=== PATIENT | female | born 1955 | race Caucasian/White ===

== ENCOUNTER 2016-11-11 11:23 | Emergency (ER) | payer OTHER ==
[~2016-11-11] VITALS: Ht 160 cm; Wt 82.2 kg
[~2016-11-11 11:23] MED LIST: FISH1CAP29 PO; MULT-806 PO; PYRI60TA PO; UBID1CAP47 PO; VITA1CAP52 PO; [UNRECOGNIZED DRUG - CODE] SL
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
--- OUTSIDE RECORDS SUMMARY | 2016-11-11 11:27 | XMS REPORT | Continuity of Care Document ---
Author Author [facility] Amb[facility] Address [address] [place] [address] Phone Care Team Providers Care Detail Sergeant Name Role Phone Martin Nina PP Unavailable Jil Bryan RP Unavailable Payers Payer name Insurance type Covered constitution party ID Authorization(s) Unknown Problems Condition Effective Dates (start - stop) Clinical Status Abnormal PET scan of colon - *Acute Personal history of malignant melanoma of skin - *Chronic Neck pain - *Chronic Fatigue, unspecified - *Chronic Mononucleosis - *Acute GERD (gastroesophageal reflux disease) - *Chronic Fatigue / Malaise - *Chronic Pleurisy - *Acute Myalgia and myositis, unspecified - *Chronic Personal history of malignant melanoma of skin - *Chronic Fatigue / Malaise - *Chronic Breast mass in female - *Acute Cellulitis of female breast - *Acute Skin lesion of right lower limb - Uncertain Fatigue / Malaise - *Chronic Fatigue / Malaise - *Chronic Cervicalgia - *Chronic DYSPHAGIA NOS - Tinnitus - *Chronic Thyroiditis - *Chronic Hiatal hernia - *Chronic MALIG MELANOMA LEG - PURE HYPERCHOLESTEROLEM - 311 - DEPRESSIVE DISORDER NEC - OSTEOARTHROS NOS-HAND - Fatigue - Episodic Joint pain - *Chronic Urinary frequency - *Acute Upper Respiratory Infection, Acute - *Acute Sleep apnea - *Chronic Insomnia - *Chronic Pharyngitis, Acute - *Acute Actinic keratosis - *Chronic Family History Family Member Diagnosis Age At Onset Status Maternal grandmother (Unknown) Heart disease Yes Maternal grandfather (Unknown) CVA (Stroke) Yes Maternal grandfather (Unknown) Heart disease Yes Sister (Unknown) Cancer - lung Yes Brother (Unknown) Obesity Yes Mother (Unknown) Obesity Yes Brother (Unknown) Diabetes Yes Mother (Unknown) Diabetes Yes Sister (Unknown) COPD Yes Sister (Unknown) Obesity Yes Family h/o (Unknown) Hyperlipidemia Yes Maternal grandmother (Unknown) Obesity Yes Maternal grandmother (Unknown) Diabetes Yes Family h/o (Unknown) COPD Yes Social History Social History Element Description Quantity Unknown Allergies, Adverse Reactions, Alerts Substance Reaction Severity Status Unknown Medications Medication Instructions Dosage Effective Dates (start - stop) Status 13 - Active multivitamin tablet take 3 Tablet by Oral route every day 0 - Active CoQ-10 30 mg capsule Take as directed - Active Fish Oil 1,000 mg capsule take 3 tablets by oral route every day 0 2012 - Active pyridostigmine bromide 60 mg tablet take 1 tablet (60MG) by oral route 5 times every day 60 MG - Active Immunizations Vaccine Date Status Comments Tdap (Adacel ) completed - Completed reason: other registry Results Test Name Date and Time Measure Units Reference Range Abnormal Flag Comments Unknown Vital Signs Date / Time: Height Weight Pulse Rate Blood Pressure Temperature /15:00:00 62.00 in 150.00 lbs 120/64 mm[Hg] 96.6 F Procedures Procedure Date Unknown Encounters Encounter Location Date Patient Visit [facility] New Surg Patient Visit [facility] FM Patient Visit [facility] FM Patient Visit [facility] Patient Visit [facility] Patient Visit [facility] Patient Visit [facility] Patient Visit [facility] ENT Patient Visit [facility] Patient Visit [facility] Patient Visit [facility] Mur Rheum Patient Visit [facility] New Patient Visit [facility] Loi Patient Visit [facility] Advance Directives Directive Effective Date Unknown
--- OUTSIDE RECORDS SUMMARY | 2016-11-11 11:27 | XMS REPORT | Continuity of Care Document ---
Author Author [facility] Organization [facility] Address Unknown Phone Unavailable Allergies Active Description Code Type Severity Reaction Onset Reported/Identified Relationship to Patient Clinical Status Yes No Known Allergies Drug Allergy 04/23/2012 Yes No Known Allergies Drug Allergy N/A N/A 04/23/2012 Yes No Known Drug Allergies Drug Allergy 04/23/2012 Yes No Known Drug Allergies Drug Allergy N/A N/A 04/23/2012 Yes No Known Food Allergies Food Allergy 04/23/2012 Yes No Known Food Allergies Food Allergy N/A N/A 04/23/2012 Medications Problems Date Dx Coded Attending Type Code Diagnosis Diagnosed By 04/23/2012 Warren Davila MD Final 075 INFECTIOUS MONONUCLEOSIS 04/23/2012 Warren Davila MD Final 276.51 DEHYDRATION 04/23/2012 Warren Davila MD Final 518.81 AC RESPIRATORY FAILURE 04/23/2012 Warren Davila MD Final 574.20 GB CALCULUS W/O CHOL 04/23/2012 Warren Davila MD Final 715.90 OSTEOARTHOSIS NOS-NOS 04/23/2012 Warren Davila MD Admitting 780.79 MALAISE FATIGUE NEC 04/23/2012 Warren Davila MD Final 787.91 DIARRHEA 08/06/2012 Final 611.72 LUMP OR MASS IN BREAST 08/06/2012 Final 611.79 SYMPTOMS IN BREAST NEC 02/18/2013 Axel Archer MD Final 515 POSTINFLAM PULM FIBROSIS 02/18/2013 Axel Archer MD Admitting 793.11 SOLITARY PULMON NODULE 02/18/2013 Axel Archer MD Final V81.5 NEPHROPATHY SCREENING 02/18/2013 Axel Archer MD Admitting 786.6 CHEST SWELLING/MASS/LUMP Procedures Results Encounters ACCT No. Visit Date/Time Discharge Status Pt. Type Provider Facility Loc./Unit Complaint [id number] 02/18/2013 11:32:00 2012 23:59:59 CLS Outpatient Gianni LINN, Axel Dockery [facility] [id number] 08/06/2012 01:44:00 2011 23:59:59 CLS Outpatient [id number] 04/23/2012 11:56:00 2011 18:07:00 DIS Inpatient Lola LINN, Warren Dowell [facility] [address] F8SW
--- OUTSIDE RECORDS SUMMARY | 2016-11-11 11:27 | XMS REPORT | Referral Summary ---
Author Author [facility] Organization [facility] Address Unknown Phone Unavailable Care Team Providers Care Operations Research Director Name Role Phone Randy Rhodes Primary Care Physician [phone] Encounter VC Date(s): 09/04/15 - 09/04/15 [facility] [address] [place] [id number] Discharge Diagnosis: Acute maxillary sinusitis Discharge Diagnosis: Acute bacterial bronchitis Discharge Disposition: 01-Home or Self Care Attending Physician: Randy Rhodes DO Admitting Physician: Randy Rhodes DO Vital Signs Most recent to 1 oldest [Reference Range]: Temperature Tympanic 36.2 degC [36.6-38.1 degC] *LOW* (09/04/15 1:58 PM) Peripheral Pulse 70 bpm Rate [60-100 bpm] (09/04/15 1:58 PM) Blood Pressure 142/75 mmHg [90-140/60-90 mmHg] *HI* (09/04/15 1:58 PM) Problem List Condition Effective Dates Status Health Status Informant Acute bacterial Active bronchitis(Confirmed ) Acute maxillary Active sinusitis(Confirmed) Anemia(Confirmed) Active Arthritis(Confirmed) Active Chicken Active pox(Confirmed) Depression(Confirmed Active ) Diverticula(Confirme Active d) Hearing Active loss(Confirmed) Hyperlipidemia(Confi Active rmed) Incontinence Active stress(Confirmed) Melanoma of 2006 Active thigh-left(Confirmed ) Migraine(Confirmed) Active Overweight(Confirmed Active ) Sleep Active apnea(Confirmed) Left thyroid Active nodule(Confirmed) Allergies, Adverse Reactions, Alerts No Known Medication Allergies Medications Augmentin 875 mg-125 mg oral tablet 1 tabs, Oral, q12hr, X 10 days, # 20 tabs, 0 Refill(s), Pharmacy: [facility] #[id number] Start Date: 09/04/15 Stop Date: 09/14/15 Status: Ordered Claritin 10 mg, 0 Refill(s) Start Date: 08/01/14 Status: Ordered Co Q-10 300 mg, Oral, Daily, takes 4 daily, 0 Refill(s) Start Date: 04/03/14 Status: Ordered CPAP Machine (DME) DME Item w/o O2, See Instructions, # 1 Each, 0 Refill(s), Supply Start Date: 04/03/14 Status: Ordered Fish Oil 1000 mg oral capsule 1 caps, Oral, TID, # 90 caps, 0 Refill(s) Start Date: 04/03/14 Status: Ordered multivitamin 1 tabs, Oral, Daily, 0 Refill(s) Start Date: 04/03/14 Status: Ordered predniSONE 20 mg oral tablet 20 mg 1 tabs, Oral, Daily, X 5 days, # 5 tabs, 0 Refill(s), Pharmacy: [facility] #[id number], 1 tabs Oral Daily,x5 days Start Date: 09/04/15 Stop Date: 09/09/15 Status: Ordered pyridostigmine 60 mg oral tablet 1 tabs, Oral, 5x/Day, 0 Refill(s) Start Date: 04/03/14 Status: Ordered Tessalon 200 mg oral capsule 200 mg 1 caps, Oral, TID, X 10 days, # 30 caps, 0 Refill(s), Pharmacy: [facility] #[id number], 1 caps Oral TID,x10 days Start Date: 09/04/15 Stop Date: 09/14/15 Status: Ordered Results No data available for this section Immunizations No data available for this section Procedures Procedure Date Related Diagnosis Body Site Hysterectomy 2000 Colonoscopy CPAP (continuous positive airway pressure) dependence Tubulovillous adenoma Social History Social History Type Response Smoking Status Never smoker Assessment and Plan Extracted from: Title: Office Visit Note Author: Randy Rhodes DO Date: 09/04/15 Assessment/Plan Acute bacterial bronchitis Pathophysiology of this presentation, and differential diagnosis, discussed in detail with the patient. All questions were answered. 1. Augmentin one tablet twice a day 10 days. 2. Prednisone 20 mg daily for 5 days. 3. Tessalon pearls 200 mg every 8 hours as needed for coughing. Ordered: amoxicillin-clavulanate, 1 tabs, Oral, q12hr, X 10 days, # 20 tabs, 0 Refill(s) , Pharmacy: [facility] #[id number] benzonatate, 200 mg 1 caps, Oral, TID, X 10 days, # 30 caps, 0 Refill(s), Pharmacy: [facility] #[id number], 1 caps Oral TID,x10 days predniSONE, 20 mg 1 tabs, Oral, Daily, X 5 days, # 5 tabs, 0 Refill(s), Pharmacy: [facility] #[id number], 1 tabs Oral Daily,x5 days Office Visit Level 4 Est 42690 Acute maxillary sinusitis 1. As above. Ordered: amoxicillin-clavulanate, 1 tabs, Oral, q12hr, X 10 days, # 20 tabs, 0 Refill(s) , Pharmacy: [facility] #[id number] benzonatate, 200 mg 1 caps, Oral, TID, X 10 days, # 30 caps, 0 Refill(s), Pharmacy: [facility] #[id number], 1 caps Oral TID,x10 days predniSONE, 20 mg 1 tabs, Oral, Daily, X 5 days, # 5 tabs, 0 Refill(s), Pharmacy: [facility] #[id number], 1 tabs Oral Daily,x5 days Office Visit Level 4 Est 08020
--- OUTSIDE RECORDS SUMMARY | 2016-11-11 11:27 | XMS REPORT | Referral Summary ---
Author Author [facility] Organization [facility] Address Unknown Phone Unavailable Care Team Providers Care Accounting Lecturer Name Role Phone Randy Rhodes Primary Care Physician [phone] Encounter VC Date(s): 03/03/16 - 03/03/16 [facility] [address] [place] [address] Discharge Diagnosis: Actinic keratoses Discharge Diagnosis: General medical exam Discharge Disposition: 01-Home or Self Care Attending Physician: Randy Rhodes DO Admitting Physician: Randy Rhodes DO Vital Signs Most recent to 1 oldest [Reference Range]: Temperature Tympanic 36.1 degC [36.6-38.1 degC] *LOW* (03/03/16 9:35 AM) Peripheral Pulse 70 bpm Rate [60-100 bpm] (03/03/16 9:35 AM) Blood Pressure 121/80 mmHg [90-140/60-90 mmHg] (03/03/16 9:35 AM) Problem List Condition Effective Dates Status Health [...] Reactions, Alerts No Known Medication Allergies Medications Co Q-10 300 mg, Oral, Daily, takes [...] 0 Refill(s) Start Date: 04/03/14 Status: Ordered pyridostigmine 60 mg oral tablet 1 tabs, Oral, 5x/Day, 0 Refill(s) Start Date: 04/03/14 Status: Ordered Results No data available for this section Immunizations No data available for this section Procedures Procedure Date Related Diagnosis Body Site Destruction (eg, laser surgery, 03/03/16 electrosurgery, cryosurgery, chemosurgery, surgical curettement), premalignant lesions (eg, actinic keratoses); first lesion Destruction (eg, laser surgery, 03/03/16 electrosurgery, cryosurgery, chemosurgery, surgical curettement), premalignant lesions (eg, actinic keratoses); second through 14 lesions, each (List separately in addition to code for first lesion) Colonoscopy1 09/18/13 Hysterectomy 2000 CPAP (continuous positive airway pressure) dependence Tubulovillous adenoma 1Results: Tubulovillous Adenoma; Diverticula . Repeat in 5 years Social History Social History Type Response Smoking Status Never smoker Assessment and Plan Extracted from: Title: Office Visit Note Author: Randy Rhodes DO Date: 03/03/16 Assessment/Plan 1.General medical exam 1. This is a well-developed well-nourished 60-year- old female in relatively good health. 2. Healthy lifestyle changes recommended, she voiced understanding. 3. Given her fair complexion and history of melanoma, sunscreen protection on a regular basis recommended. 4. Screening labs ordered today, report is pending. 5. Recommended yearly mammogram. 6. Her last colonoscopy was in November 2013, she is due to have a repeat colonoscopy 5 years from previous which would put her at November 2018. 7. Recommended yearly well woman exam. Ordered: CBC w/ Differential Comprehensive Metabolic Panel Destruction premalignant lesion 2-14, Each 09449 Hemoglobin A1c Lipid Panel Office Visit Level 4 Est 42081 TSH with Reflex Free T4 2.Actinic keratoses 1. A total of 5 actinic keratosis lesions were treated today involving the left medial, superior periorbital region, the nose, and the left advent region. 2. She has multiple actinic keratosis to her forearms. I recommended consideration of Aldara treatment. She will check with her insurance whether this is covered. Ordered: Destruction premalignant lesion 1st Destruction premalignant lesion 2-14, Each 56282 Office Visit Level 4 Est 31978
--- OUTSIDE RECORDS SUMMARY | 2016-11-11 11:27 | XMS REPORT | Continuity of Care Document ---
Author Author [facility] Organization [facility] Address Unknown Phone Unavailable Care Team Providers Care External Grinder Name Role Phone Primary Care Physician Unavailable Source Comments Some departments are not documenting in the electronic medical record. If you do not see the information that you expected, contact Release of Information in the Health Information Management department at [phone] for further assistance in locating additional records.[facility] Active Allergies and Adverse Reactions No Known Allergies Current Medications Prescription Sig. Disp. Refills Start End Date Status Date pyridostigmine (MESTINON) Take 60 mg by mouth three Active 60 mg tablet times daily. CoQ10 (Ubiquinol) 200 mg Take by mouth twice Active cap daily. vitamins, B complex Take 1 Tab by mouth Active (VITAMIN B COMPLEX) tab daily. CYANOCOBALAMIN (VITAMIN Take by mouth four times Active B-12) (VITAMIN B-12 PO) daily. LYSINE PO Take 3,000 mg by mouth. Active Iodine (Kelp) tab Take by mouth. Active manganese Active MAGNESIUM HYDROXIDE Take 200 mg by mouth. Active (MAGNESIA PO) VALERIAN PO Take by mouth at bedtime Active daily. Take 2 DOCOSAHEXANOIC ACID/EPA Take 2,000 mg by mouth. Active (FISH OIL PO) Active Problems Not on file Social History Tobacco Use Types Packs/Day Years Used Date Never Smoker Smokeless Tobacco: Never Used Alcohol Use Drinks/Week oz/Week Comments No Last Filed Vital Signs Vital Sign Reading Time Taken Blood Pressure 122/85 07/23/2013 10:38 AM LEGAL ADVISER Pulse 71 07/23/2013 10:38 AM LEGAL ADVISER Temperature - - Respiratory Rate - - Height 1.575 m (5' 2") 07/23/2013 10:38 AM LEGAL ADVISER Weight 67.586 kg (149 lb) 07/23/2013 10:38 AM LEGAL ADVISER Body Mass Index 27.25 07/23/2013 10:38 AM LEGAL ADVISER Oxygen Saturation - - Plan of Care Health Maintenance Due Date Last Done Comments Physical (Comprehensive) 1962 Exam Pertussis Vaccine 1966 Tetanus Vaccine 1972 Cervical Cancer Screening 1976 Breast Cancer Screening 1995 Colorectal Cancer 2005 Screening Shingles Vaccine 2015 Influenza Vaccine 04/28/2016 Results from Last 3 Months Not on file
--- OUTSIDE RECORDS SUMMARY | 2016-11-11 11:27 | XMS REPORT | Continuity of Care Document ---
Author Author [facility] Address [address] [place] [address] [place] [address] Phone Care Team Providers Care Documentation Spec Name Role Phone Martin Nina PP Unavailable Jil Bryan RP Unavailable Payers Payer name Insurance type Covered constitution party ID Authorization(s) Unknown Problems Condition Effective Dates (start - stop) Clinical Status Pleurisy - *Acute Myalgia and myositis, unspecified - *Chronic Neck pain - *Chronic Fatigue, [...] Dosage Effective Dates (start - stop) Status prednisone 10 mg tablet take 3 by Oral route TAKE DIRECTED 0 - Active pyridostigmine bromide 60 mg tablet take 1 tablet (60MG) by oral route 6 times every day 60 MG - Active multivitamin tablet take 3 Tablet by Oral route every day 0 - Active CoQ-10 30 mg capsule Take as directed - Active Fish Oil 1,000 mg capsule take 3 tablets by oral route every day 0 2012 - Active COQ-10 (unknown strength) Take as directed - No Longer Active 13 - Active Ambien 10 mg tablet take 1 Tablet by Oral route every day 0 - Active Immunizations Vaccine Date Status Comments Tdap (Adacel ) completed - Completed reason: other registry Results Test Name Date and Time Measure Units Reference Range Abnormal Flag Comments Unknown Vital Signs Date / Time: Height Weight Pulse Rate Blood Pressure Temperature /08:21:00 62.00 in 153.00 lbs 72 /min 118/84 mm[Hg] 96.5 F Procedures Procedure Date Unknown Encounters Encounter Location Date Patient Visit [facility] Patient Visit [facility] Patient Visit [facility] Patient Visit [facility] Patient Visit [facility] Patient Visit [facility] Patient Visit [facility] ENT Patient Visit [facility] Patient [facility] New FM Patient Visit [facility] New FM Patient Visit [facility] Advance Directives Directive Effective Date Unknown
--- OUTSIDE RECORDS SUMMARY | 2016-11-11 11:27 | XMS REPORT | Continuity of Care Document ---
Author Author Martin Nina MD [facility] Ambulatory Address [address] [place] [address] [place] [address] Phone Care Team Providers Care Receivables Specialist Name Role Phone Martin Nina PP Unavailable EwyJil RP Unavailable Payers Payer name Insurance type Covered libertarian ID Authorization(s) Unknown Problems Condition Effective Dates (start - stop) Clinical Status Personal history of malignant melanoma of skin - *Chronic Fatigue / Malaise - *Chronic Neck pain - *Chronic Fatigue, unspecified - *Chronic Mononucleosis - *Acute GERD (gastroesophageal reflux disease) - *Chronic Fatigue / Malaise - *Chronic Pleurisy - *Acute Myalgia and myositis, unspecified - *Chronic Breast mass in female - *Acute Cellulitis of female breast - *Acute Skin lesion of right lower limb - Uncertain Fatigue / Malaise - *Chronic Abnormal PET scan of colon - *Acute [...] Dosage Effective Dates (start - stop) Status pyridostigmine bromide 60 mg tablet take 1 tablet (60MG) by oral route 5 times every day 60 MG - Active 13 - Active multivitamin tablet take 3 Tablet by Oral route every day 0 - Active CoQ-10 30 mg capsule Take as directed - Active Fish Oil 1,000 mg capsule take 3 tablets by oral route every day 0 2012 - Active Immunizations Vaccine Date Status Comments Tdap (Adacel ) completed - Completed reason: other registry Results Test Name Date and Time Measure Units Reference Range Abnormal Flag Comments Unknown Vital Signs Date / Time: Height Weight Pulse Rate Blood Pressure Temperature /10:01:00 62.00 in 154.00 lbs 79 /min 122/80 mm[Hg] 97.0 F Procedures Procedure Date Unknown Encounters Encounter Location Date Patient Visit [facility] Patient Visit [facility] Patient Visit [facility] Patient Visit [facility] Patient Visit [facility] Patient Visit [facility] FM Patient Visit [facility] Surg Patient [facility] Patient Visit [facility] Visit [facility] New [facility] New Patient Visit [facility] Advance Directives Directive Effective Date Unknown
--- NOTE | 2016-11-11 11:30 | NUR ---
TO CT PER CART ACCOMPANIED BY IVELISSE LAWS TO CT
--- NOTE | 2016-11-11 11:45 | NUR ---
RETURNED FROM CT. VS OBTAINED.
[2016-11-11 11:53] VITALS: Ht 160 cm; Wt 82.2 kg
--- NOTE | 2016-11-11 12:01 | NUR ---
C COLLAR REMOVED PER DR LEE
[2016-11-11] MEDS ORDERED: CYAN50003 PO (12:10)
--- NOTE | 2016-11-11 12:11 | DI ---
EXAM: CT HEAD W/O CONTRAST COMPARISON: None available. HISTORY: ITS.REASON: trauma LOCATION OF DICTATION: [facility] [place]. TECHNIQUE: Without IV contrast, axial images were obtained through the brain and reviewed in brain, soft tissue, bone, and subdural windows. The current CT scan was performed using radiation dose-reduction techniques. FINDINGS:There is a convex hyperdense collection seen at the right extra-axial parietal region which may represent an epidural hematoma measuring 5 mm in thickness x 3.5 cm AP. This extends at or just above the temporal region and extends superiorly towards the convexity. No definite midline shift or mass effect is identified. Periventricular deep white matter hypodensities are noted likely related to small vessel ischemic disease. The suprasellar cistern and quadrigeminal plate cisterns are intact. The segura-white junctions are distinct. No sulcal effacement is identified. The basal ganglia, posterior fossa and brainstem region appear unremarkable. There is no evidence for midline shift or mass effect. The midline structures appear unremarkable. No osseous abnormalities are identified. There is a small mucus retention cyst or polyp at the posterior right sphenoid sinus. The remainder of the paranasal sinuses and mastoid air cells are clear. No evidence for displaced skull fracture is identified. IMPRESSION: 1. Small epidural hematoma seen at the right parietal region measuring 5 mm in thickness x 3.5 cm in length. 2. Periventricular deep white matter hypodensities are noted likely related to small vessel ischemic disease. NOTE: The results were called to the ordering clinician, LAWANDA ALCARAZ MD immediately after the exam was performed and reviewed on 11/11/2016 12:06 PM. .
[2016-11-11] MEDS ORDERED: PYRI60TA2 PO (12:13)
[2016-11-11] MEDS ORDERED: DETOX PO (12:14)
[2016-11-11] MEDS ORDERED: [UNRECOGNIZED DRUG - CODE] PO (12:14)
[2016-11-11] MEDS ORDERED: ONDANSETRON 4mg/2ml INJECTION IV ONE (12:15)
[2016-11-11] MEDS ORDERED: TETANUS,DIPHTH,a PERTUS (Tdap) 0.5 ML VIAL IM ONE (12:15)
--- OUTSIDE RECORDS SUMMARY | 2016-11-11 12:17 | XMS REPORT | Continuity of Care Document ---
Author Author [facility] Organization [facility] Address Unknown Phone Unavailable Care Team Providers Care Applications Architect Name Role Phone Primary Care Physician Unavailable Source Comments Some departments are not documenting in the electronic medical record. If you do not see the information that you expected, contact Release of Information in the Health Information Management department at [phone] for further assistance in locating additional records.[facility] Active Allergies and Adverse Reactions No Known [...] Taken Blood Pressure 122/85 07/23/2013 10:38 AM BUSINESS LINE MANAGER Pulse 71 07/23/2013 10:38 AM BUSINESS LINE MANAGER Temperature - - Respiratory Rate - - Height 1.575 m (5' 2") 07/23/2013 10:38 AM BUSINESS LINE MANAGER Weight 67.586 kg (149 lb) 07/23/2013 10:38 AM BUSINESS LINE MANAGER Body Mass Index 27.25 07/23/2013 10:38 AM BUSINESS LINE MANAGER Oxygen Saturation - - Plan of Care Health Maintenance Due Date Last Done Comments Physical (Comprehensive) 1962 Exam Pertussis Vaccine 1966 Tetanus Vaccine 1972 Cervical Cancer Screening 1976 Breast Cancer Screening 1995 Colorectal Cancer 2005 Screening Shingles Vaccine 2015 Influenza Vaccine 04/28/2016 Results from Last 3 Months Not on file
--- OUTSIDE RECORDS SUMMARY | 2016-11-11 12:17 | XMS REPORT | Continuity of Care Document ---
Author Author [facility] Organization [facility] Address Unknown Phone Unavailable Allergies Active Description [...] Status Pt. Type Provider Facility Loc./Unit Complaint [id number] 02/18/2013 11:32:00 2012 23:59:59 CLS Outpatient Gianni LINN, Axel Dockery [facility] [id number] 08/06/2012 01:44:00 2011 23:59:59 CLS Outpatient [id number] 04/23/2012 11:56:00 2011 18:07:00 DIS Inpatient Lola LINN, Warren Dowell [facility] on [id number]
--- NOTE | 2016-11-11 12:18 | ERPDOC ---
Departure Disposition Decision Date: Nov 11, 2016 Disposition Decision Time: 12:25 Disposition: 02 TO [facility] Impression Impression Impression: Primary Impression: Traumatic epidural hematoma Severity: Severe Condition: Stabilized for Transport Seen By: Physician only Problems/Meds/Labs Reviewed?: Yes Medications reviewed and manag: Yes Follow up care ordered?: Yes Mental Status: Forgetful, Confused HPI - Trauma-Multisystem General Chief Complaint: Multiple Trauma Stated Complaint: STEPPED ON BY HORSE Time Seen by Provider: 11:35 HPI - Trauma-Multisystem Initial Comments 61-year-old female presents with loss of consciousness after horse injury. She was loading her horse into a trailer, it shied away from the trailer and she was knocked down and probably kicked in the head. She had approximately 15 seconds of unconsciousness per eyewitness. She did not throw up at the time. She refused to let family call EMS, they put her in the vehicle and drove her to [facility]. They did call to let us know they were coming, charge nurse recommended that with this mechanism of injury that goes straight to [place] but that we were happy to see them if they did come. They felt they needed to be seen right away and came to [facility]. On arrival patient was placed in c-collar and immediately taken back for cervical CT scan and head CT scan. I history she did become more confused again in the ambulance and defecated on herself. She continues to have confusion in the emergency department. Complains of right posterior head pain and feels like it is growing and pushing on her. Allergies: Coded Allergies: No Known Drug Allergies (Verified Allergy, Unknown, 04/22/12) Past History Patient Medical History Problem List Updates: Possible history of myasthenia gravis. Vaccines Hx Influenza Vaccination: Yes (3 YRS AGO) Hx Pneumococcal Vaccination: No Social History Smoking Status: Never smoker Substance Use Type: does not use Record Review Pertinent history updated: Yes Review of Systems Unable to Obtain ROS Due to: clinical condition Comments Patient confused, sometimes able to answer questions and focus, sometimes not. Neurological General: DENIES: headache, numbness, seizures, syncope, vertigo, weakness All other Systems All Other Systems: Reviewed and Negative Physical Exam General General Nourishment: well nourished, well developed, appears stated age Distress Description Headache, confusion Vitals and Pain Weight: Kilograms: 82.200 Height (feet): 5 Height (inches): 3.00 Triage Pain Scale: Normal Exams: Eyes: Pupils are PERRLA w/ EOMI, No scleral icterus, irritation, or foreign bodies noted Chest/Resp: Clear all haywood, with good airflow, and symmetry bilaterally CV: Regular rate and rhythm, without murmur or gallop, Pulses 2+ all extremities, capillary refill, <2 seconds all ext., no pedal edema noted Abdomen: Bowel sounds positive, soft, non-tender, non-distended, no hepatosplenomegaly, masses or bruits noted Neurologic: cranial nerves, motor/sensory/cerebellar, exams w/o gross deficits , to observation Differential Diagnoses Differential Diagnoses Considering: Concussion, Epidural Hematoma, Fracture, Shock - Neurogenic, Spleen Injury, Spinal Injury, Subdural Hematoma Progress Results/Orders Orders Procedure Category Date Status Time Ct Head W/O Contrast CT 11/11/16 Resulted 11:35 Ct Cervical Spine W/O CT 11/11/16 Taken Contrast 11:35 Tetanus,Diphth,A PHA 11/11/16 Complete Pertus (Tdap) (Adacel) 12:15 Ondansetron Inj PHA 11/11/16 Complete (Zofran) 12:15 Medications Current ED Medications Diphtheria/ Tetanus/Acell Pertussis (Adacel) 0.5 ml O ONCE IM ; Start 11/11/16 at 12:15; Stop 11/11/16 at 12:17; Status DC Ondansetron HCl (Zofran) 4 mg O ONCE IV ; Start 11/11/16 at 12:15; Stop at 12:17; Status DC Progress Progress CT neck cleared, CT brain called result as 3.5 x 0.5 cm right parietal epidural hematoma. I called and spoke with Dr. Galarza at [facility], neurosurgery. He agreed with the transfer. Patient will be transferred via EMS for observation/ intervention. This is a necessary transfer due to the mechanism of injury and the possible severity of sequela from an epidural hematoma. Patient given Zofran 4 mg IV, 2 large-bore IVs started, normal saline given. LAWANDA ALCARAZ MD Nov 11, 2016 12:18
--- NOTE | 2016-11-11 12:21 | DI ---
EXAM: CT CERVICAL SPINE W/O CONTRAST COMPARISON: None available. HISTORY: ITS.REASON: trauma LOCATION OF DICTATION: [facility] [place] TECHNIQUE: Axial images were obtained through the cervical spine with thin sections from the base of the skull through C7-T1 and reconstructed in thin sections as well as sagittal and coronal reformations. The current CT scan was performed using radiation dose-reduction techniques. FINDINGS: Vertebral bodies: The cervical vertebral bodies are well aligned. Vertebral body heights are well maintained. Disc spaces: There is disc space narrowing at C5-6 and C6-7 with endplate sclerosis and posterior bony ridging. Axial images of the skull, shows the skull base to be intact. C1 arches are intact. C2 is thought to be intact. There is a cortical lucency at the anterior aspect of the right lateral mass of C2 although a displaced fracture is not seen on the sagittal or coronal images and this likely represents a nutrient vessel foramen. At C2-3, there is mild flattening of the anterior thecal sac. C3 is intact. At C3-4, there is minimal flattening the anterior thecal sac. C4 is intact. At C4-5, there is mild flattening of the anterior thecal sac. C5 is intact. At C5-6, there is posterior bony ridging and disc bulge flattening the anterior thecal sac. There is left-sided uncovertebral joint hypertrophic change. C6 is intact. At C6-7, there is disc bulge and posterior bony ridging with convex mass effect on the anterior thecal sac. C7 is intact. T1 is intact. The upper ribs are intact. Bones: There is no evidence for acute fracture, subluxation or dislocation. Soft tissues: No prevertebral soft tissue abnormality is identified. Lung apices: Review of the lung windows shows the lung apices to be clear without evidence for pneumothorax or pulmonary contusion identified. IMPRESSION: 1. Degenerative changes of the cervical spine as described above without definite evidence for acute fracture identified. 2. There is lucency at the right lateral mass of C2 but is thought to be related to a nutrient vessel foramen rather than a fracture. NOTE: The results were called to the ordering clinician, LAWANDA ALCARAZ MD immediately after the exam was performed and reviewed on 11/11/2016 12:05 PM. .
[2016-11-11 12:24] VITALS: BP 139/63; PULSE 67; RESP 20; TEMP 98.4; O2SAT 99
== END 2016-11-11 12:24 | disposition short-term general hospital (02) ==
LOC: ED 11:23
DX: S06.4X1A Epidural hemorrhage with loss of consciousness of 30 minutes or less, initial encounter (principal); W55.12XA Struck by horse, initial encounter; Y93.89 Activity, other specified; Y92.9 Unspecified place or not applicable; Y99.8 Other external cause status
CPT/HCPCS: 70450; 72125; 90471; 90715; 96374; 99291; J2405; L0150